=== PATIENT | male | born 1950 | race Caucasian/White ===

== ENCOUNTER 2017-04-05 21:57 | Emergency (ER) | payer MEDICARE ==
[~2017-04-05] VITALS: Ht 170.2 cm; Wt 95.0 kg
--- NOTE | 2017-04-05 22:07 | PD ---
HPI Chief Complaint: seizures Time Seen by Provider: 22:06 Travel History International Travel<30 days: No Contact w/Intl Traveler<30days: No Traveled to known affect area: No History of Present Illness HPI 66-year-old male with history of dementia possibly related to chronic alcoholism in the past came to the emergency room brought by EMS for a possible seizure episode. Patient is unable to give any meaningful history because of his baseline mental status. History was mostly obtained by EMS as given to them by the intermediate from where patient is coming. As per the intermediate staff patient has history of seizure disorder but not on any seizure medications. Today he had an episode that lasted for 9-10 seconds that was his usual generalized tonic-clonic. He was sent here to be checked in. Vital signs are stable. No obvious injuries that was noticed her reported. [facility] Past Medical History Narrative Medical List of his past medical, surgical, social and family history is reviewed from the nursing note. Social History Tobacco Use: No Allergies-Medications (Allergen,Severity, Reaction): Coded Allergies: No Known Allergies (Unverified , 04/05/17) Comments No known drug allergies. Reported Meds & Prescriptions Reported Meds & Active Scripts Active Keppra (Levetiracetam) 500 Mg Tab 500 Mg PO BID Reported Ativan (Lorazepam) 0.5 Mg Tab 0.5 Mg PO DAILY PRN Non-Aspirin (Acetaminophen) 325 Mg Tab 325 Mg PO Q4-6H PRN Nystatin 500,000 Unit Tab 1,000,000 Units PO Q8H Novolog Flexpen Inj (Insulin Aspart) 300 Unit/3 Ml Pen 1 Units SQ Buspirone (Buspirone HCl) 5 Mg Tab 5 Mg PO BID Folic Acid 0.8 Mg Tab 800 Mcg PO DAILY Flomax (Tamsulosin HCl) 0.4 Mg Cap 0.4 Mg PO HS Aspirin EC (Aspirin) 81 Mg Tabdr 81 Mg PO DAILY Amlodipine (Amlodipine Besylate) 5 Mg Tab 5 Mg PO DAILY Metformin (Metformin HCl) 500 Mg Tab 500 Mg PO BIDPC With meals Magox 400 (Magnesium Oxide) 400 Mg Tablet Lantus Inj (Insulin Glargine) 1,000 Unit/10 Ml Vial 10 Units SQ HS Furosemide 40 Mg Tab 40 Mg PO BID Vitamin B-12 (Cyanocobalamin) 1,000 Mcg Subl 1,000 Mcg SL DAILY Vitamin B-1 (Thiamine HCl) 100 Mg Tab 100 Mg PO DAILY Januvia (Sitagliptin Phosphate) 100 Mg Tab 100 Mg PO DAILY Multiple Vitamin 1 Tab 1 Tab PO DAILY Metformin (Metformin HCl) 500 Mg Tab 500 Mg PO BIDPC With meals Minocycline (Minocycline HCl) 100 Mg Cap 100 Mg PO BID Metoprolol Tartrate 25 Mg Tab 25 Mg PO BID Calcium 600+D 200 (Calcium Carbonate-Vitamin D) 600-200 Mg-Unit Tab 1 Tab PO BID Narrative Medication List of his home medications reviewed from the nursing note. Review of Systems Except as stated in HPI: all other systems reviewed are Neg Physical Exam Narrative GENERAL: Awake, dementia, nonverbal, contractures SKIN: Focused skin assessment warm/dry. HEAD: Atraumatic. Normocephalic. EYES: Pupils equal and round. No scleral icterus. No injection or drainage. ENT: No nasal bleeding or discharge. Mucous membranes pink and moist. NECK: Trachea midline. No JVD. CARDIOVASCULAR: Regular rate and rhythm. No murmur appreciated. RESPIRATORY: No accessory muscle use. Clear to auscultation. Breath sounds equal bilaterally. GASTROINTESTINAL: Abdomen soft, non-tender, nondistended. Hepatic and splenic margins not palpable. MUSCULOSKELETAL: Bilateral upper extremity contractures. No clubbing. No cyanosis. No edema. NEUROLOGICAL: Awake nonverbal, dementia. No obvious cranial nerve deficits. Motor grossly within normal limits. PSYCHIATRIC: Unable to assess Data Data Last Documented VS Vital Signs Date Time Temp Pulse Resp B/P (MAP) Pulse Ox O2 Delivery O2 Flow Rate FiO2 04/06/17 11:36 04/06/17 08:11 98.4 82 19 97 Room Air Orders Orders Complete Blood Count With Diff (04/05/17 22:25) Basic Metabolic Panel (Bmp) (04/05/17 22:25) Ct Brain W/O Iv Contrast(Rout) (04/05/17 ) Blood Glucose (04/05/17 22:25) Ecg Monitoring (04/05/17 22:25) Iv Access Insert/Monitor (04/05/17 22:25) Oximetry (04/05/17 22:25) Sodium Chloride 0.9% Flush (Ns Flush) (04/05/17 22:30) Levetiracetam (Keppra) (04/05/17 23:30) Labs Laboratory Tests Test 04/05/17 22:40 White Blood Count 7.2 TH/MM3 Red Blood Count 4.16 MIL/MM3 Hemoglobin 11.7 GM/DL Hematocrit 35.6 % Mean Corpuscular Volume 85.5 FL Mean Corpuscular Hemoglobin 28.2 PG Mean Corpuscular Hemoglobin Concent 33.0 % Red Cell Distribution Width 14.6 % Platelet Count 130 TH/MM3 Mean Platelet Volume 9.3 FL Neutrophils (%) (Auto) 70.5 % Lymphocytes (%) (Auto) 17.8 % Monocytes (%) (Auto) 10.0 % Eosinophils (%) (Auto) 0.8 % Basophils (%) (Auto) 0.9 % Neutrophils # (Auto) 5.1 TH/MM3 Lymphocytes # (Auto) 1.3 TH/MM3 Monocytes # (Auto) 0.7 TH/MM3 Eosinophils # (Auto) 0.1 TH/MM3 Basophils # (Auto) 0.1 TH/MM3 CBC Comment DIFF FINAL Differential Comment Blood Urea Nitrogen 29 MG/DL Creatinine 0.87 MG/DL Random Glucose 226 MG/DL Calcium Level 9.5 MG/DL Sodium Level 137 MEQ/L Potassium Level 4.1 MEQ/L Chloride Level 101 MEQ/L Carbon Dioxide Level 27.2 MEQ/L Anion Gap 9 MEQ/L Estimat Glomerular Filtration Rate 88 ML/MIN [facility] Medical Decision Making Medical Screen Exam Complete: Yes Emergency Medical Condition: Yes Medical Record Reviewed: Yes Differential Diagnosis Electrolyte abnormality, intracranial bleed, seizure disorder Narrative Course 11:28 PM blood test results of back and within acceptable limits. CT scan is done, waiting for the report. If that's within normal limit patient will be discharged back to the intermediate. I possibly will start him on Keppra. 11:[address] scan is within normal limit. Patient will be discharged home with a prescription of Keflex. Procedures EKG Prior to Arrival: No Diagnosis Primary Impression: Seizure disorder Referrals: Primary Care Physician Additional Instructions: Please return to ER if the condition worsens or any other new concerns. Otherwise follow-up with primary care within 1 week. Take the medication as per the prescription direction. Med/Other Pt SpecificInfo: Prescription(s) given Scripts Levetiracetam (Keppra) 500 Mg Tab 500 MG PO BID for Control Seizures, #60 TAB 0 Refills Prov: Conrado Espinoza MD 04/05/17 Disposition: 01 DISCHARGE HOME Condition: Stable Conrado Espinoza MD Apr 05, 2017 22:07
[2017-04-05 22:08] VITALS: BP 138/69; PULSE 92; RESP 16; TEMP 98.1; O2SAT 100
[2017-04-05] MEDS ORDERED: SODIUM CHLORIDE 0.9% FLUSH 10 ML FLUSH IVF PRN (22:30)
[2017-04-05] MEDS ORDERED: LANTUS2P SQ (22:40)
[2017-04-05] MEDS ORDERED: METF500T PO (22:40)
[2017-04-05] MEDS ORDERED: FURO40TA PO (22:40)
[2017-04-05] MEDS ORDERED: MAGO400T2 (22:40)
[2017-04-05] MEDS ORDERED: VITA100021 SL (22:40)
[2017-04-05] MEDS ORDERED: METO25TA3 PO (22:40)
[2017-04-05] MEDS ORDERED: BUSP5TAB PO (22:40)
[2017-04-05] MEDS ORDERED: LORA-392 PO (22:40)
[2017-04-05] MEDS ORDERED: TAMS5CAP PO (22:40)
[2017-04-05] MEDS ORDERED: ASPI81TA11 PO (22:40)
[2017-04-05] MEDS ORDERED: SITA1TAB2 PO (22:40)
[2017-04-05] MEDS ORDERED: CALCTAB19 PO (22:40)
[2017-04-05] MEDS ORDERED: AMLO5TAB2 PO (22:40)
[2017-04-05] MEDS ORDERED: FOLI800T PO (22:40)
[2017-04-05] MEDS ORDERED: MULTTAB67 PO (22:40)
[2017-04-05] MEDS ORDERED: MINO100 PO (22:40)
[2017-04-05] MEDS ORDERED: NOVOINJ3 SQ (22:40)
[2017-04-05] MEDS ORDERED: VITA100T54 PO (22:40)
[2017-04-05] MEDS ORDERED: NYST500000 PO (22:40)
[2017-04-05] MEDS ORDERED: NON-325T2 PO (22:40)
[2017-04-05 22:53] LABS: AUTOMATED NEUTROPHIL # 5.1 TH/MM3 (1.8-7.7); BASOPHIL # 0.1 TH/MM3 (0-0.2); BASOPHIL % 0.9 % (0.0-2.0); EOSINOPHIL # 0.1 TH/MM3 (0-0.4); EOSINOPHIL % 0.8 % (0.0-4.0); HEMATOCRIT 35.6 % (39.0-51.0); HEMO FLAGS DIFF FINAL; LYMPH % 17.8 % (9.0-44.0); LYMPHOCYTE # 1.3 TH/MM3 (1.0-4.8); MEAN CELL VOLUME 85.5 FL (80.0-100.0); MEAN CORPUSCULAR HEMOGLOBIN 28.2 PG (27.0-34.0); NEUT % 70.5 % (16.0-70.0); PLATELET COUNT 130 TH/MM3 (150-450); RED BLOOD COUNT 4.16 MIL/MM3 (4.50-5.90); RED CELL DISTRIBUTION WIDTH 14.6 % (11.6-17.2); WHITE BLOOD COUNT 7.2 TH/MM3 (4.0-11.0)
[2017-04-05 23:11] LABS: BICARBONATE 27.2 MEQ/L (21.0-32.0); POTASSIUM 4.1 MEQ/L (3.5-5.1)
[2017-04-05] MEDS ORDERED: levETIRAcetam 500 MG TAB PO ONE (23:30)
--- NOTE | 2017-04-05 23:30 | RADRPT ---
EXAM DATE/TIME: 04/05/2017 22:49 [place] COMPARISON: No previous studies available for comparison. INDICATIONS : Altered mental status. Seizure. RADIATION DOSE: 34.92 CTDIvol (mGy) MEDICAL HISTORY : Dementia. Diabetes mellitus type 2. SURGICAL HISTORY : None. ENCOUNTER: Initial ACUITY: 1 day PAIN SCALE: 0/10 LOCATION: cranial TECHNIQUE: Multiple contiguous axial images were obtained of the head. Using automated exposure control and adj ustment of the mA and/or kV according to patient size, radiation dose was kept as low as reasonably a chievable to obtain optimal diagnostic quality images. DICOM format image data is available electro nically for review and comparison. FINDINGS: CEREBRUM: Mild to moderate cerebral volume loss in the upper limits of normal for age. Nonspecific calcificatio ns in the basal ganglia bilaterally. The ventricles are normal for degree of atrophy. No evidence of midline shift, mass lesion, hemorrhage or acute infarction. No extra-axial fluid collections are se en. POSTERIOR FOSSA: The cerebellum and brainstem are intact. The 4th ventricle is midline. The cerebellopontine angle i s unremarkable. EXTRACRANIAL: The visualized portion of the orbits is intact. SKULL: The calvaria is intact. No evidence of skull fracture. CONCLUSION: 1. No acute intracranial abnormality. Héctor Yung MD on April 05, 2017 at 23:28 Board Certified Radiologist. This report was verified electronically.
[2017-04-05] MEDS ORDERED: LEVE500 PO (23:41)
[2017-04-06 08:11] VITALS: BP 146/76; PULSE 82; RESP 19; TEMP 98.4; O2SAT 97
== END 2017-04-06 11:35 | disposition home or self-care (01) ==
LOC: NEPE 21:57
DX: G40.909 Epilepsy, unspecified, not intractable, without status epilepticus (principal); F03.90 Unspecified dementia, unspecified severity, without behavioral disturbance, psychotic disturbance, mood disturbance, and anxiety
CPT/HCPCS: 70450; 80048; 85025; 99285